=== PATIENT | female | born 1970 | race Caucasian/White ===

== ENCOUNTER 2017-10-20 12:38 | Emergency (ER) | payer OTHER ==
[2017-10-20 13:33] VITALS: BP 138/99; PULSE 84; TEMP 97.7
--- NOTE | 2017-10-20 13:37 | PDOC ---
Rapid Medical Evaluation Chief Complaint: Pain, Acute Time Seen by Provider: 10/20/17 13:34 Medical Evaluation: Allergies Allergy/AdvReac Type Severity Reaction Status Date / Time methylergonovine maleate Allergy Verified 10/20/17 13:29 [From Methergine] Vital Signs Temp Pulse Resp BP Pulse Ox 97.7 F 84 16 138/99 100 10/20/17 13:30 10/20/17 13:30 10/20/17 13:30 10/20/17 13:30 10/20/17 13:30 10/20/17 13:34 I have performed a brief in-person evaluation of this patient. The patient presents with a chief complaint of: R knee pain today. H/o chronic R knee pain, goes to PT Pertinent physical exam findings:unable to evaluate at triage I have ordered the following:knee xray The patient will proceed to the ED for further evaluation. 10/20/17 13:46 10/20/17 13:47
[2017-10-20] MEDS ORDERED: KETOROLAC TROMETHAMINE 60 MG/2 ML VIAL ONE (14:26)
--- NOTE | 2017-10-20 14:34 | PDOC ---
History of Present Illness - General Chief Complaint: Pain, Acute Stated Complaint: RT LEG PAIN Time Seen by Provider: 10/20/17 13:34 History Source: Patient, Family Exam Limitations: No Limitations - History of Present Illness Initial Comments: 10/20/17 14:36 Patient came to emergency department with complaints of acute onset of right knee pain. was stepping up into bus when felt an acute onset of pain and a snap, is unable to bend her right leg. has had some issues with her musculature and has been receiving physical therapy for what sounds to be a in the ilio tibial band problem. stopped using the meloxicam as she felt she was improving until this morning when she woke up and had a recurrence of this severe pain of her thigh. When stepping into the bus felt this injury to the knee and came to emergency department for evaluation is painful but she is able to bear weight. Came requesting an MRI of her knee as she states had multiple x-rays a few weeks ago and knows there is not a bony problem., Refused x-rays. Orthopedist is at [facility] and her physician is in [place]. Denies other injury, denies fever, no numbness or tingling to foot. Occurred: reports: just prior to arrival Severity: reports: moderate, severe Pain Location: reports: lower extremity (right knee) Loss of Consciousness: no loss of consciousness Past History - Travel Traveled outside of the country in the last 30 days: No Close contact w/someone who was outside of country & ill: No - Past Medical History Allergies/Adverse Reactions: Allergies Allergy/AdvReac Type Severity Reaction Status Date / Time methylergonovine maleate Allergy Verified 10/20/17 13:29 [From Methergine] Home Medications: Ambulatory Orders Meloxicam 7.5 mg PO ASDIR 10/20/17 COPD: No HTN: Yes (pre- HTN) - Immunization History Immunization Up to Date: Yes - Suicide/Smoking/Psychosocial Hx Smoking History: Never smoked Have you smoked in the past 12 months: No Information on smoking cessation initiated: No Hx Alcohol Use: No Drug/Substance Use Hx: No Substance Use Type: None Trauma Specific PMHX - Complaint Specific PMHX Back Injury: No Neck Injury: No Review of Systems - Review of Systems Able to Perform ROS?: Yes Is the patient limited Salvadorean proficient: Yes Constitutional: Yes: See HPI. No: Symptoms Reported HEENTM: Yes: See HPI. No: Symptoms Reported : No: Symptoms Reported Musculoskeletal: Yes: Symptoms Reported, See HPI, Joint Pain, Joint Swelling, Muscle Weakness Neurological: Yes: Symptoms reported. No: Numbness All Other Systems: Reviewed and Negative *Physical Exam - Vital Signs Last Vital Signs Temp Pulse Resp BP Pulse Ox 97.7 F 84 16 138/99 100 10/20/17 13:30 10/20/17 13:30 10/20/17 13:30 10/20/17 13:30 10/20/17 13:30 - Physical Exam General Appearance: Yes: Nourished, Appropriately Dressed, Apparent Distress, Mild Distress, Moderate Distress HEENT: positive: TITA, Normal ENT Inspection, TMs Normal, Pharynx Normal Neck: positive: Supple. negative: Tender Respiratory/Chest: positive: Normal Breath Sounds. negative: Chest Tender, Lungs Clear Gastrointestinal/Abdominal: positive: Soft. negative: Tender Musculoskeletal: negative: Normal Inspection, CVA Tenderness Extremity: positive: Normal Capillary Refill, Normal Inspection. negative: Normal Range of Motion (unable to bend passed approximately 30 without tenderness. Patella seems mobile without crepitus or step-offs however knee joint is swollen. No obvious defect, and neurovascular intact distal to the knee. Has pain to the medial and lateral aspect and difficult to examine secondary to patient's reluctance and pain) Integumentary: positive: Dry, Warm, Pale, Ecchymosis, Bruising Neurologic: positive: sterile processing technician II-XII NML intact, Fully Oriented, Alert, Normal Mood/ Affect, Normal Response Progress Note - Progress Note Progress Note: Right knee strain, patient refused x-rays and there is no immobilizer available to fit patient's thigh. We'll provide crutches, encouraged to obtain knee immobilizer and surgical supply store and has appointment with her PMD for follow-up and further testing as requested. Has meloxicam, and provided Toradol IM for pain relief currently *DC/Admit/Observation/Transfer Diagnosis at time of Disposition: Right knee sprain Qualifiers: Encounter type: initial encounter Involved ligament of knee: unspecified ligament Qualified Code(s): S83.91XA - Sprain of unspecified site of right knee , initial encounter - Discharge Dispostion Disposition: HOME Condition at time of disposition: Stable Admit: No - Referrals Referrals: STAFF,NOT ON [Primary Care Provider] - Chuck Deluca MD [Staff Physician] - - Patient Instructions Printed Discharge Instructions: DI for Knee Sprain Additional Instructions: Rest, ice to area on and off for 15 minutes 4-6 times a day Avoid heavy lifting or exercise until pain and swelling is resolved or until further directed Keep area highly elevated to reduce swelling Use splints/Connor wrap as directed Followup with orthopedist in one to 2 days if not improving, if significantly improved may wait one week for followup with orthopedist May use ibuprofen 2-200 mg tablets every 6 hours as needed for pain - Post Discharge Activity Forms/Work/School Notes: Back to Work
[2017-10-20] MEDS ORDERED: KETOROLAC TROMETHAMINE 60 MG/2 ML VIAL IM ONE (14:40)
== END 2017-10-20 14:53 | disposition home or self-care (01) ==
LOC: JERFT 12:38
PROC: 3E0233Z Introduction of Anti-inflammatory into Muscle, Percutaneous Approach (ICD-10-PCS; principal; 2017-10-20)
DX: S83.8X1A Sprain of other specified parts of right knee, initial encounter (principal); V78.4XXA Person boarding or alighting from bus injured in noncollision transport accident, initial encounter; Y92.488 Other paved roadways as the place of occurrence of the external cause; Y93.89 Activity, other specified; Y99.8 Other external cause status
CPT/HCPCS: 99281-25